=== PATIENT | female | born 1960 | race Caucasian/White ===

== ENCOUNTER 2022-01-17 16:12 | Emergency (ER) | payer MEDICARE ==
--- NOTE | 2022-01-17 16:36 | ED Physician Documentation ---
PD HPI FEMALE - Stated complaint Stated Complaint: FEMALE /NAUSEA - Chief complaint Chief Complaint: Abd Pain - History obtained from History obtained from: Patient - History of Present Illness Timing - onset: How many days ago Timing - duration: Days, Weeks Timing - details: Gradual onset, Still present Associated symptoms: Vaginal pain, Vaginal bleeding, Vaginal discharge. No: Fever, Back pain, Genital sore/lesion Contributing factors: Other (has also noted pain and tightness at vaginal open ing, with difficulty/pain with attempted intercourse.) Similar symptoms before: Diagnosis (seen couple months ago for similar (without bleeding though) and Dx with yeast/BV. Rx with metrogel and vaginal probiotic cream. Patient says improved for month or so, but symptoms back some the past few weeks, worse the past few days.) Recently seen: Clinic (she tried going to walk in clinic first but did not feel they were understanding her complaint of vaginal discomfort with discharge/bleeding.) Review of Systems Constitutional: denies: Fever, Chills Nose: denies: Rhinorrhea / runny nose, Congestion Throat: denies: Sore throat Respiratory: denies: Cough GI: denies: Nausea, Vomiting, Diarrhea : reports: Other (renal failure/dialysis. 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 : Dialysis, Renal insuffiency - Present Medications Home Medications: Ambulatory Orders Medication Instructions Recorded Confirmed Estrogens, Conjugated Cream 1 applic VG QPM 10 Days #30 gm 01/17/22 [Premarin Cream] Fluconazole [Diflucan] 150 mg PO ONCE #1 tablet 01/17/22 metroNIDAZOLE [Flagyl] 500 mg PO BID 7 Days #14 tablet 01/17/22 - Allergies Allergies/Adverse Reactions: Allergies Allergy/AdvReac Type Severity Reaction Status Date / Time Sulfa (Sulfonamide Allergy Hives Verified 01/17/22 16:22 Antibiotics) Fentanyl patch Allergy Rash Uncoded 01/17/22 16:22 PD ED PE NORMAL - Vitals Vital signs reviewed: Yes - General General: Alert and oriented X 3, No acute distress, Well developed/nourished - Respiratory Respiratory: Clear bilaterally - Abdomen Abdomen: Soft, Non tender, Non distended - Female Female : 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 Tender for speculum insertion. Moderate discharge in vault, white-yellow without notable malodor. cervix appears irritated with scant bleeding. No endocervical bleeding noted. ) - Rectal Rectal: Deferred - Back Back: No CVA TTP - Derm Derm: Normal color, Warm and dry - Extremities Extremities: No edema, No calf tenderness / cord - Neuro Neuro: Alert and oriented X 3, No motor deficit, Normal speech Results - Vitals Vitals: Vital Signs - 24 hr 01/17/22 01/17/22 01/17/22 16:17 16:21 18:11 Temperature 36.8 C 36.8 C 37.2 C Heart Rate 69 69 67 Respiratory 16 16 20 Rate Blood Pressure 163/66 H 163/66 H 141/79 H O2 Saturation 100 100 100 Oxygen O2 Source Room air - Labs Labs: Laboratory Tests 01/17/22 01/17/22 12:30 17:30 C. glabrata (PCR) NEGATIVE C. krusei (PCR) NEGATIVE Monalisa species DNA NEGATIVE Chlam trachomat DNA PCR NEGATIVE N.gonorrhoeae DNA (PCR) NEGATIVE T. vaginalis (PCR) NEGATIVE TNP Bact Vaginosis (PCR) POSITIVE A PD MEDICAL DECISION MAKING - ED course Complexity details: reviewed results, considered differential, d/w patient Departure - Departure Disposition: 01 Home, Self Care Clinical Impression: Introital dyspareunia Vaginitis Qualifiers: Chronicity: acute Qualified Code(s): N76.0 - Acute vaginitis Condition: Stable Record reviewed to determine appropriate education?: Yes Prescriptions: Fluconazole [Diflucan] 150 mg PO ONCE #1 tablet metroNIDAZOLE [Flagyl] 500 mg PO BID 7 Days #14 tablet Estrogens, Conjugated Cream [Premarin Cream] 1 applic VG QPM 10 Days #30 gm Comments: You do have some discharge and irritation in the vaginal vault and I think this is the source of your discomfort and mild bleeding. You also have tightness of the tissue at the opening of the vaginal vault and that likely is from some muscle mucosal stiffness. We gave you a dose of an antifungal tablet presuming at least a yeast vaginitis. We would have you take a repeat dose before your dialysis. Take it next Friday presuming you have dialysis on Friday. We are running test to look for bacterial causes for the vaginal infection as well. This should result later or tomorrow and I will call you if there is any other positive results that we need to add other medication. You can use a estrogen cream at the labial opening to try to help soften some of the tissue atrophy there. I transmitted your prescriptions to the [facility] pharmacy in [place]. Discharge Date/Time: 01/17/22 18:12
[2022-01-17] MEDS ORDERED: ACETAMINOPHEN 325 MG TABLET PO STA (17:29)
[2022-01-17] MEDS ORDERED: FLUCONAZOLE 100 MG TABLET PO STA (17:34)
[2022-01-17 18:11] VITALS: BP 141/79
[2022-01-17 19:25] LABS: BACTERIAL VAGINOSIS DNA POSITIVE (NEGATIVE); CANDIDA GLABRATA DNA NEGATIVE (NEGATIVE); CANDIDA GROUP DNA NEGATIVE (NEGATIVE); CANDIDA KRUSEI DNA NEGATIVE (NEGATIVE); TRICHOMONAS VAGINALIS DNA NEGATIVE (NEGATIVE)
[2022-01-17 20:50] LABS: CHLAMYDIA TRACHOMATIS DNA NEGATIVE (NEGATIVE); NEISSERIA GONORRHOEAE DNA NEGATIVE (NEGATIVE)
== END 2022-01-17 18:12 | disposition home or self-care (01) ==
LOC: ED 16:12
DX: N76.0 Acute vaginitis (principal); N94.19 Other specified dyspareunia
CPT/HCPCS: 81514; 87491; 87591; 87661; 99283

== ENCOUNTER 2022-01-23 14:54 | Emergency (ER) | payer MEDICARE ==
--- NOTE | 2022-01-23 17:18 | XRAY Report ---
PROCEDURE: Hip w/Pelvis 2-3V LT INDICATIONS: HIP PAIN TECHNIQUE: AP pelvis with lateral view(s) of the left hip(s). COMPARISON: None. FINDINGS: Bones: Bilateral total hip arthroplasty in good position. No evidence of hardware failure or loosenin g. Osseous structures unremarkable. Soft tissues: The visualized bowel gas pattern is normal. No suspicious soft tissue calcifications. IMPRESSION: Bilateral total hip arthroplasty in good position. No evidence of hardware failure or loosening. Reviewed by: Ismael Edouard MD on 01/23/2022 4:16 PM AKDT Approved by: Ismael Edouard MD on 01/23/2022 4:16 PM AKDT Station ID: [id number]
--- NOTE | 2022-01-23 17:51 | ED Physician Documentation ---
PD HPI LOWER EXT INJURY - Stated complaint Stated Complaint: L HIP PAIN - Chief complaint Chief Complaint: Ext Problem - History obtained from History obtained from: Patient - History of Present Illness PD HPI LOW EXT INJURY LOCATION: Left, Hip Type of injury: Other (prior hip replacements 1997. Had been doing well until past few months when having feeling of looseness of hip in the socket at certain times, with torsional movement mainly. Had a feeling of hip out of socket today and then clunked. Pain with walking and weight bearing left side.). No: Fall, Twist Where injury occurred: Home, Work Timing - duration: Days, Weeks Timing - details: Gradual onset, Still present (worse today after felling of hip "out of socket" and now hurting with movement and walking, lifting leg up.), Intermittant Worsened by: Moving, Other (walking and step climbing in particular.) Associated symptoms: No: Weakness, Numbness Contributing factors: Prosthetic joint Review of Systems Constitutional: denies: Fever, Chills Throat: denies: Sore throat Cardiac: denies: Chest pain / pressure Respiratory: denies: Cough Skin: denies: Rash, Lesions PD PAST MEDICAL HISTORY - Past Medical History Cardiovascular: None Respiratory: None Neuro: None Endocrine/Autoimmune: None GI: None 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 ) - Present Medications Home Medications: Ambulatory Orders Medication Instructions Recorded Confirmed Estrogens, Conjugated Cream 1 applic VG QPM 10 Days #30 gm 01/17/22 [Premarin Cream] Fluconazole [Diflucan] 150 mg PO ONCE #1 tablet 01/17/22 metroNIDAZOLE [Flagyl] 500 mg PO BID 7 Days #14 tablet 01/17/22 dexAMETHasone [Decadron] 4 mg PO DAILY #5 tablet 01/23/22 - Allergies Allergies/Adverse Reactions: Allergies Allergy/AdvReac Type Severity Reaction Status Date / Time Sulfa (Sulfonamide Allergy Hives Verified 01/23/22 15:20 Antibiotics) Fentanyl patch Allergy Rash Uncoded 01/23/22 15:20 PD ED PE NORMAL - Vitals Vital signs reviewed: Yes - General General: Alert and oriented X 3, Well developed/nourished - Neck Neck: Supple, no meningeal sign, No adenopathy - Cardiac Cardiac: RRR, No murmur - Respiratory Respiratory: Clear bilaterally - Abdomen Abdomen: Soft, Non distended - Derm Derm: Normal color, Warm and dry - Extremities Extremities: Other (left lateral and posterior hip, particularly lateral trochanter area, with pain on ROM of the hip. The hip socket itself does not have clicking/crepitance on passive ROM.) Results - Vitals Vitals: Oxygen O2 Source Room air - Rads (name of study) left hip with pelvis Radiology: Prelim report reviewed (no fractures nor dislocations. ), See rad report PD MEDICAL DECISION MAKING - ED course Complexity details: considered differential (could be laxity of the muscles leading to feeling of partial dislocation/subluxing, versus the prosthetic being loose and moving with certain torsions. ), d/w patient Departure - Departure Disposition: 01 Home, Self Care Clinical Impression: Hip pain Condition: Stable Record reviewed to determine appropriate education?: Yes Follow-Up: Butch Scott MD [Provider Admit Priv/Credential] - Prescriptions: dexAMETHasone [Decadron] 4 mg PO DAILY #5 tablet Comments: Your x-ray appears good without any signs of dislodgment or displacement of the replacement and no obvious dislocation. It does not sound likely that its subluxing within the joint causing the pain and clicking and popping. This may relate to looseness of the ligaments holding it versus Inc. frequently some looseness of the actual replacement parts in the joint. We would have you follow-up with orthopedics for reevaluation. I would sleep with the abductor pillow to reduce motion and such while sleeping. You can use the walker to help with comfort of the hip and support when ambulating. Follow-up with orthopedics for evaluation of this to see if they think it is looseness of the ligaments versus a problem with the replacement. I provided Dr. Scott's phone number for the orthopedic clinic. Continue with usual medicines. I would suggest regular acetaminophen 5 mg 4 times daily regularly to help with the pain. If persisting, we could consider an anti-inflammatory as well to see if that might help. I provided a prescription for you in case you opt to go with that as well. This would be steroid dosing daily for 5 days. Given your dialysis, we would not want to use any NSAIDs. Follow-up with your orthopedic clinic, call tomorrow for an appointment and they commonly get you in and over within a week or so. Discharge Date/Time: 01/23/22 19:58
[2022-01-23] MEDS ORDERED: ACETAMINOPHEN 325 MG TABLET PO STA (18:12)
[2022-01-23] MEDS ORDERED: HYDROmorphone 1 MG/ML CARPUJECT IM STA (18:13)
[2022-01-23 19:56] VITALS: BP 142/94
== END 2022-01-23 19:58 | disposition home or self-care (01) ==
LOC: ED 14:54
DX: M25.552 Pain in left hip (principal); Z96.643 Presence of artificial hip joint, bilateral
CPT/HCPCS: 73502; 96372; 99282; 99283; A9270; J1170

== ENCOUNTER 2022-03-05 08:00 | Outpatient (CLI) | payer MEDICARE, MEDICAID ==
--- NOTE | 2022-03-06 10:49 | XRAY Report ---
PROCEDURE: Hip 2 View LT INDICATIONS: HIP PAIN TECHNIQUE: 2 views of the hip were acquired. COMPARISON: X-ray pelvis with left hip, 01/23/2022 FINDINGS: Bones: Bilateral total hip arthroplasties. Surgical hardware appear intact. No fractures or dislocat ions. No suspicious bony lesions. The visualized pelvic ring appears intact. Moderate SI joint deg eneration bilaterally. Soft tissues: No suspicious soft tissue calcifications or masses. IMPRESSION: Bilateral total hip arthroplasties. Surgical hardware appear intact. No acute abnormality. If clinica lly indicated, further evaluation with CT may be helpful. Reviewed by: Susan Montaño MD on 03/06/2022 10:48 AM PDT Approved by: Susan Montaño MD on 03/06/2022 10:48 AM PDT Station ID: [id number]
== END 2022-03-05 23:59 | disposition home or self-care (01) ==
LOC: DI.WOS 08:00
PROVIDERS: ATTEND Physician Assistant
DX: Z96.643 Presence of artificial hip joint, bilateral (principal)

== ENCOUNTER 2022-05-11 14:59 | Outpatient (CLI) | payer MEDICARE, MEDICAID | END 2022-05-11 15:00 | disposition critical access hospital (66) | LOC: EMS 14:59 | DX: I47.1 Supraventricular tachycardia (principal) | CPT/HCPCS: A0425; A0427 ==

== ENCOUNTER 2022-05-11 15:24 | Emergency (ER) | payer MEDICARE, MEDICAID ==
--- NOTE | 2022-05-11 15:33 | ED Physician Documentation ---
History of Present Illness - Stated complaint Stated Complaint: CHEST PX - History obtained from History obtained from: Patient - History of Present Illness Timing: Today Pain level max: 0 Pain level now: 0 - Additonal information Additional information: Patient is a 61-year-old female with a longstanding history of paroxysmal SVT. She developed SVT after dialysis today. She was picked up by EMS, given 6 mg of adenosine, converted back to sinus rhythm. Patient is currently fully asymptomatic. She states that this happens a few times per month. She has been decreasing her metoprolol lately. Has not yet established with a new design and sales consultant here. 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 ) - Present Medications Home Medications: Ambulatory Orders Medication Instructions Recorded Confirmed Estrogens, Conjugated Cream 1 applic VG QPM 10 Days #30 gm 01/17/22 [Premarin Cream] Fluconazole [Diflucan] 150 mg PO ONCE #1 tablet 01/17/22 metroNIDAZOLE [Flagyl] 500 mg PO BID 7 Days #14 tablet 01/17/22 dexAMETHasone [Decadron] 4 mg PO DAILY #5 tablet 01/23/22 - Allergies Allergies/Adverse Reactions: Allergies Allergy/AdvReac Type Severity Reaction Status Date / Time Sulfa (Sulfonamide Allergy Hives Verified 01/23/22 15:20 Antibiotics) Fentanyl patch Allergy Rash Uncoded 01/23/22 15:20 PD ED PE NORMAL - Vitals Vital signs reviewed: Yes - General General: Alert and oriented X 3, No acute distress - HEENT HEENT: PERRL, Moist mucous membranes - Neck Neck: Supple, no meningeal sign - Cardiac Cardiac: RRR, Strong equal pulses, Other (3/6 systolic murmur) - Respiratory Respiratory: No respiratory distress, Clear bilaterally - Abdomen Abdomen: Soft, Non tender, Non distended - Derm Derm: Warm and dry - Extremities Extremities: No edema, No calf tenderness / cord - Neuro Neuro: Alert and oriented X 3 - Psych Psych: Normal mood, Normal affect Results - Vitals Vitals: Vital Signs - 24 hr 05/11/22 05/11/22 05/11/22 15:30 15:48 15:59 Temperature 37.1 C 36.6 C Heart Rate 74 72 65 Respiratory 21 19 21 Rate Blood Pressure 174/76 H 152/74 H 152/72 H O2 Saturation 100 99 96 Oxygen O2 Source Room air - EKG (time done) 1531 Rate: Rate (enter#) (72) Rhythm: NSR [place]: Normal Intervals: Normal MS QRS: Normal, LVH Ischemia: Non specific changes PD MEDICAL DECISION MAKING - ED course Complexity details: considered differential, d/w patient ED course: Patient had an episode of SVT that resolved with 6 of adenosine with EMS. She states that this is a known condition. She is currently fully asymptomatic. She states she had a recent echocardiogram which did show a murmur, she does not recall which valve. Given that the patient is currently asymptomatic and that this is a known problem, no further work-up will be obtained at this time. Patient counseled to follow-up with her doctor and make sure she follows up with a new design and sales consultant. Patient counseled regarding signs and symptoms for which I believe and urgent re-evaluation would be necessary. Patient with good understanding of and agreement to plan and is comfortable going home at this time This document was made in part using voice recognition software. While efforts are made to proofread this document, sound alike and grammatical errors may occur. Departure - Departure Disposition: 01 Home, Self Care Clinical Impression: SVT (supraventricular tachycardia) Condition: Good Instructions: ED Tachycardia Pat PSVT Follow-Up: Jaky Byrd MD [Provider Admit Priv/Credential] - Within 1 week [facility] [Provider Group] [facility] [Provider Group] [facility] [Provider Group] Comments: Please continue your current medications at home. Please follow-up with your design and sales consultant for further care. Return if you worsen. You were in SVT today but have converted back into a normal rhythm. Discharge Date/Time: 05/11/22 15:59
[2022-05-11 16:01] VITALS: BP 152/72
== END 2022-05-11 15:59 | disposition home or self-care (01) ==
LOC: EDUNIT# → ED 15:24
DX: I47.1 Supraventricular tachycardia (principal)
CPT/HCPCS: 93005; 99282; 99283

== ENCOUNTER 2022-05-28 18:37 | Emergency (ER) | payer MEDICARE, MEDICAID ==
--- NOTE | 2022-05-28 19:53 | XRAY Report ---
PROCEDURE: Chest 2 View X-Ray INDICATIONS: cough, fever TECHNIQUE: 2 view(s) of the chest. COMPARISON: None. FINDINGS: Surgical changes and devices: None. Lungs and pleura: Lungs are mildly hyperexpanded. Patchy opacities are seen in the right midlung zon e mild likely in the right upper lobe on lateral view. Mediastinum: Mediastinal contours are normal. Heart size is mildly enlarged. Moderate aortic other scattered calcifications. Bones and chest wall: No suspicious bony abnormalities. Soft tissues appear unremarkable. IMPRESSION: 1.Mild patchy right upper lobe opacities are suspicious for pneumonia. 2.Bilateral emphysematous changes 3.Mild cardiomegaly. Reviewed by: Wiley Holt MD on 05/28/2022 7:52 PM PDT Approved by: Wiley Holt MD on 05/28/2022 7:52 PM PDT Station ID: [id number]
[2022-05-28 20:16] LABS: B. PARAPERTUSSIS- RESP PCR PAN NOT DETECTED; B. PERTUSSIS- RESP PCR PANEL NOT DETECTED; C. PNEUMONIAE- RESP PCR PANEL NOT DETECTED; CORONAVIRUS 229E-RESP PCR NOT DETECTED; CORONAVIRUS HKU1-RESP PCR NOT DETECTED; CORONAVIRUS NL63-RESP PCR NOT DETECTED; CORONAVIRUS OC43-RESP PCR NOT DETECTED; HUMAN METAPNEUMOVIRUS NOT DETECTED; INFLUENZA A- RESP PCR PANEL NOT DETECTED; INFLUENZA B - RESP PCR PANEL NOT DETECTED; M. PNEUMONIAE- RESP PCR PANEL NOT DETECTED; PARAINFLUENZA VIRUS 1 NOT DETECTED; PARAINFLUENZA VIRUS 2 NOT DETECTED; PARAINFLUENZA VIRUS 3 NOT DETECTED; PARAINFLUENZA VIRUS 4 NOT DETECTED; RHINOVIRUS/ENTEROVIRUS DETECTED; RSV- RESP PCR PANEL NOT DETECTED; SARS-CoV-2 -RESP PCR PANEL NOT DETECTED
[2022-05-28] MEDS ORDERED: levoFLOXacin 250 MG TABLET PO STA (20:34)
--- NOTE | 2022-05-28 20:36 | ED Physician Documentation ---
History of Present Illness - Stated complaint Stated Complaint: COUGH, SOA, FATIGUE - Chief complaint Chief Complaint: General - History obtained from History obtained from: Patient, Family - History of Present Illness Timing: How many days ago (4) Pain level max: 0 Pain level now: 0 - Additonal information Additional information: Patient is a 61-year-old female on hemodialysis. Had dialysis today. She has had a cough, congestion and fatigue for the past several days. Developed a fever today. Came in for evaluation. Nothing makes it better or worse. Has taken several negative COVID test. 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 ) - Present Medications Home Medications: Ambulatory Orders Medication Instructions Recorded Confirmed Amlodipine Besylate [Norvasc] 10 mg PO DAILY 05/28/22 05/28/22 Metoprolol Tartrate [Lopressor] 75 mg PO BID 05/28/22 05/28/22 diazePAM [Diazepam] 2 mg ORAL Q8HR PRN 05/28/22 05/28/22 levoFLOXacin [Levaquin] 250 mg PO ONCE #4 tablet 05/28/22 - Allergies Allergies/Adverse Reactions: Allergies Allergy/AdvReac Type Severity Reaction Status Date / Time Sulfa (Sulfonamide Allergy Hives Verified 05/28/22 18:44 Antibiotics) Fentanyl patch Allergy Rash Uncoded 01/23/22 15:20 PD ED PE NORMAL - Vitals Vital signs reviewed: Yes - General General: Alert and oriented X 3, No acute distress - HEENT HEENT: PERRL, Moist mucous membranes - Neck Neck: Supple, no meningeal sign - Cardiac Cardiac: RRR, Strong equal pulses - Respiratory Respiratory: No respiratory distress, Clear bilaterally - Abdomen Abdomen: Soft, Non tender, Non distended - Derm Derm: Warm and dry - Neuro Neuro: Alert and oriented X 3 - Psych Psych: Normal mood, Normal affect Results - Vitals Vitals: Vital Signs - 24 hr 05/28/22 05/28/22 05/28/22 18:45 18:49 20:45 Temperature 37.4 C 37.3 C Heart Rate 63 66 68 Respiratory 18 18 18 Rate Blood Pressure 141/55 H 143/56 H 144/57 H O2 Saturation 95 96 95 Oxygen O2 Source Room air - Labs Labs: Laboratory Tests 05/28/22 19:14 Nasal Adenovirus (PCR) NOT DETECTED Nasal B. parapertussis DNA (PCR) NOT DETECTED Nasal Coronavir 229E PCR NOT DETECTED Nasal Coronavir HKU1 PCR NOT DETECTED Nasal Coronavir NL63 PCR NOT DETECTED Nasal Coronavir OC43 PCR NOT DETECTED Nasal Enterovir/Rhinovir PCR DETECTED A Nasal Influenza B PCR NOT DETECTED Nasal Influenza A PCR NOT DETECTED Nasal Parainfluen 1 PCR NOT DETECTED Nasal Parainfluen 2 PCR NOT DETECTED Nasal Parainfluen 3 PCR NOT DETECTED Nasal Parainfluen 4 PCR NOT DETECTED Nasal RSV (PCR) NOT DETECTED Nasal B.pertussis DNA PCR NOT DETECTED Nasal C.pneumoniae (PCR) NOT DETECTED Slim Human Metapneumo PCR NOT DETECTED Nasal M.pneumoniae (PCR) NOT DETECTED Nasal SARS-CoV-2 (PCR) NOT DETECTED - Rads (name of study) Chest x-ray Radiology: Final report received, EMP read contemporaneously, See rad report PD MEDICAL DECISION MAKING - ED course Complexity details: reviewed results, re-evaluated patient, considered differential, d/w patient ED course: Patient is a 61-year-old female who is positive for rhinovirus. Also appears to have a patchy right upper lobe pneumonia. Will place on antibiotics for this. She is well-appearing, nontoxic. No hypoxia. No respiratory distress. No evidence of sepsis. Given the first dose of antibiotics here. We will have her follow-up with her doctor for further care. Patient counseled regarding signs and symptoms for which I believe and urgent re-evaluation would be necessary. Patient with good understanding of and agreement to plan and is comfortable going home at this time This document was made in part using voice recognition software. While efforts are made to proofread this document, sound alike and grammatical errors may occur. IMPRESSION: 1.Mild patchy right upper lobe opacities are suspicious for pneumonia. 2.Bilateral emphysematous changes 3.Mild cardiomegaly. Departure - Departure Disposition: 01 Home, Self Care Clinical Impression: Rhinovirus infection Pneumonia Qualifiers: Pneumonia type: due to unspecified organism Laterality: right Lung location: upper lobe of lung Qualified Code(s): J18.9 - Pneumonia, unspecified organism Condition: Good Instructions: ED Pneumonia Adult Follow-Up: your,doctor in 1 week [Other] Prescriptions: levoFLOXacin [Levaquin] 250 mg PO ONCE #4 tablet Comments: Your prescription was sent to [facility] in [place]. You are to take the Levaquin every other day. Take it after dialysis. Return if you worsen. You also tested positive for rhinovirus tonight. Discharge Date/Time: 05/28/22 20:45
[2022-05-28 20:45] VITALS: BP 144/57
== END 2022-05-28 20:45 | disposition home or self-care (01) ==
LOC: ED 18:37
DX: B34.8 Other viral infections of unspecified site (principal); J18.9 Pneumonia, unspecified organism; Z20.822 Contact with and (suspected) exposure to COVID-19
CPT/HCPCS: 71046; 87633; 99283; 99284; A9270

== ENCOUNTER 2022-06-09 23:26 | Emergency (ER) | payer MEDICARE, MEDICAID ==
--- NOTE | 2022-06-09 23:46 | ED Physician Documentation ---
History of Present Illness - Stated complaint Stated Complaint: IRREGULAR HR - Chief complaint Chief Complaint: Cardiac - History obtained from History obtained from: Patient - Additonal information Additional information: Patient is a 61-year-old female with history of end-stage renal disease on dialysis and SVT presenting for evaluation of feeling her heart racing earlier this evening starting at 6:00. Patient denies doing anything in particular at the time. She did have an episode about a month ago and received adenosine from EMS for SVT. She reports that the paramedics taught her a Valsalva maneuver to try and that she did this at home which has improved her symptoms. She no longer feels that her heart is racing. She reports shortness of breath that has been improving since treatment for pneumonia. She reports just finishing the antibiotic. She denies fever, cough, chest pain, dizziness. No vomiting or diarrhea. She has been compliant with her dialysis on Friday, and Friday. Review of Systems Constitutional: denies: Fever Nose: denies: Congestion Cardiac: denies: Chest pain / pressure Respiratory: denies: Cough GI: denies: Abdominal Pain, Vomiting Musculoskeletal: denies: Back pain Neurologic: denies: Generalized weakness PD PAST MEDICAL HISTORY - Past Medical History Cardiovascular: None Respiratory: None Neuro: None Endocrine/Autoimmune: None GI: None CORE ANALYST: None : Dialysis, Renal insuffiency Musculoskeletal: Other (bilateral hip replacements 1997. ) - Present Medications Home Medications: Ambulatory Orders Medication Instructions Recorded Confirmed Amlodipine Besylate [Norvasc] 10 mg PO DAILY 05/28/22 05/28/22 Metoprolol Tartrate [Lopressor] 75 mg PO BID 05/28/22 05/28/22 diazePAM [Diazepam] 2 mg ORAL Q8HR PRN 05/28/22 05/28/22 levoFLOXacin [Levaquin] 250 mg PO ONCE #4 tablet 05/28/22 - Allergies Allergies/Adverse Reactions: Allergies Allergy/AdvReac Type Severity Reaction Status Date / Time Sulfa (Sulfonamide Allergy Hives Verified 06/09/22 23:38 Antibiotics) Fentanyl patch Allergy Rash Uncoded 06/09/22 23:38 PD ED PE NORMAL - General General: Alert and oriented X 3, No acute distress, Well developed/nourished - HEENT HEENT: Atraumatic, Moist mucous membranes - Neck Neck: Supple, no meningeal sign - Cardiac Cardiac: RRR, Strong equal pulses - Respiratory Respiratory: No respiratory distress, Clear bilaterally - Abdomen Abdomen: Non tender, Non distended - Derm Derm: Warm and dry - Extremities Extremities: Other (Fistula to right upper arm; + thrill,+ bruit) Results - Vitals Vitals: Vital Signs - 24 hr 06/09/22 06/10/22 23:30 00:04 Temperature 36.1 C L Heart Rate 71 69 Respiratory 16 18 Rate Blood Pressure 178/77 H 168/66 H O2 Saturation 100 100 Oxygen O2 Source Room air - EKG (time done) 2329 Rate: Rate (enter#) (67) Rhythm: NSR Intervals: Other (QTC 497) Other comments: Other comments (Motion artifact in lead V3) - Labs Labs: Laboratory Tests 06/09/22 23:43 Sodium 137 Potassium 4.1 Chloride 95 L Carbon Dioxide 33 H Anion Gap 9.0 BUN 27 H Creatinine 6.2 H Estimated GFR (MDRD) 7 L Glucose 96 Calcium 10.2 Magnesium 2.4 PD MEDICAL DECISION MAKING - ED course Complexity details: reviewed results, re-evaluated patient, d/w patient ED course: Patient with History of SVT. She did perform Valsalva maneuvers at home and felt her symptoms improve in route and has not reoccurred. EKG with sinus rhythm with normal rate. Given that she is a dialysis patient I did check her electrolytes and potassium and magnesium are within normal limits. Patient remained in sinus rhythm and without other symptoms. Denies chest pain or other symptoms to suggest ACS or pulmonary embolism.She is comfortable with plan for follow-up with her primary care doctor And counseled on concerning symptoms to return for. Departure - Departure Disposition: 01 Home, Self Care Clinical Impression: History of paroxysmal supraventricular tachycardia Condition: Stable Instructions: ED Tachycardia Pat PSVT, ED Valsalva Maneuver Comments: You have a history of an irregular heart rhythm called SVT.Based on the symptoms that you are describing I am concerned that you may have been in this irregular rhythm earlier at home. Fortunately you were able to convert yourself out of the rhythm.Your electrolytes were checked and your potassium and magnesium levels are within normal range. Please call your primary care doctor for close follow-up. I would recommend establishing care with a console manager as you have had a few episodes of this. If you have any worsening symptoms please return to the emergency department. Discharge Date/Time: 06/10/22 00:19
[2022-06-10 00:02] LABS: CALCIUM 10.2 mg/dL (8.5-10.3); CREATININE 6.2 mg/dL (0.4-1.0); MAGNESIUM 2.4 mg/dL (1.7-2.8); POTASSIUM 4.1 mmol/L (3.5-5.0)
[2022-06-10 00:19] VITALS: BP 168/66
--- NOTE | 2022-06-10 00:37 | XRAY Report ---
PROCEDURE: Chest 1 View X-Ray INDICATIONS: SOA TECHNIQUE: One view of the chest was acquired. COMPARISON: 05/28/2022 FINDINGS: Surgical changes and devices: None. Lungs and pleura: There is a small pleural effusion with increased indistinct left basilar opacities consistent with atelectasis or developing consolidation. There is pulmonary vascular prominence sugg estive of mild edema. Mediastinum: Mediastinal contours appear normal. Heart size is normal. Bones and chest wall: No suspicious bony lesions. Overlying soft tissues appear unremarkable. IMPRESSION: 1. Small left pleural effusion with left basilar compressive atelectasis or consolidation. 2. Mild pulmonary vascular prominence suggestive of mild edema. Reviewed by: Juaquin De Souza MD on 06/10/2022 12:36 AM PDT Approved by: Juaquin De Souza MD on 06/10/2022 12:36 AM PDT Station ID: [id number]
== END 2022-06-10 00:19 | disposition home or self-care (01) ==
LOC: ED 23:26
DX: Z86.79 Personal history of other diseases of the circulatory system (principal)
CPT/HCPCS: 36415; 80048; 83735; 93005; 99284

== ENCOUNTER → 2022-07-09 | Outpatient (CLI) | payer MEDICARE, MEDICAID | END | disposition short-term general hospital (02) | LOC: EMS 06:33 | DX: M25.552 Pain in left hip (principal); S79.912A Unspecified injury of left hip, initial encounter; X58.XXXA Exposure to other specified factors, initial encounter; Z96.643 Presence of artificial hip joint, bilateral; Z99.2 Dependence on renal dialysis | CPT/HCPCS: A0425; A0429 ==

== ENCOUNTER 2022-09-12 05:20 | Outpatient (CLI) | payer MEDICARE, MEDICAID | END 2022-09-12 05:21 | disposition short-term general hospital (02) | LOC: EMS 05:20 | DX: R00.0 Tachycardia, unspecified (principal); Z99.2 Dependence on renal dialysis | CPT/HCPCS: A0425; A0429; A0888 ==